=== PATIENT | female | born 1950 | race Caucasian/White ===

== ENCOUNTER → 2024-03-19 08:45 | Outpatient (REF) | payer MEDICARE, SELFPAY | LOC: HWWDC 08:45 | PROVIDERS: ATTENDING PHYSICIAN Family Medicine | DX: Z12.31 Encounter for screening mammogram for malignant neoplasm of breast (principal) | CPT/HCPCS: 77063; 77067 ==

== ENCOUNTER 2025-02-03 02:35 | Emergency (ER) | payer MEDICARE, SELFPAY ==
[2025-02-03 02:39] VITALS: BMI 42.1
[2025-02-03 02:40] VITALS: BP 133/81
[2025-02-03 02:45] VITALS: BP 133/81
[2025-02-03 03:00] VITALS: BP 138/69
[2025-02-03 03:01] LABS: % Basophils 0.2 % (0-2); % Eosinophils 0.4 % (0-6); % Immature Granulocytes 0.2 % (0-0.5); % Lymphocytes 23.9 % (20.5-51.1); % Monocytes 3.8 % (1.7-9.3); % Neutrophils 71.5 % (42.2-75.2); Absolute Lymphocytes 1.2 10^3/uL (1.2-3.4); Absolute Monocytes 0.2 10^3/uL (0.1-0.6); Absolute Neutrophils 3.5 10^3/uL (1.4-6.5); Hemoglobin 10.6 g/dL (12.0-16.0); Mean Corp Hgb Conc. 34.2 g/dL (33.0-37.0); Mean Corpuscular Hgb 39.4 pg (27.0-31.0); Mean Corpuscular Volume 115.2 fL (81.0-99.0); Mean Platelet Volume 10.2 fL (7.4-10.4); Nucleated Red Blood Cells % 0 %; Platelet Count 204 10^3/uL (130-400); Red Blood Cell Count 2.69 10^6/uL (4.20-5.40); White Blood Cell Count 4.9 10^3/uL (4.8-10.8)
[2025-02-03 03:25] LABS: ALT (SGPT) 55 U/L (0-35); AST (SGOT) 39 U/L (14-36); Albumin 3.7 g/dl (3.5-5.0); Alkaline Phosphatase 98 U/L (38-126); Blood Urea Nitrogen 12 mg/dl (7-17); Calcium 9.2 mg/dl (8.4-10.2); Carbon Dioxide 30 mmol/L (22-30); Chloride 104 mmol/L (98-107); Estimated Creatinine Clearance 66 ml/min; Glucose 206 mg/dl (70-99); Potassium 3.9 mmol/L (3.5-5.1); Sodium 140 mmol/L (135-145); Total Bilirubin 1.6 mg/dl (0.2-1.3); Total Protein 6.2 g/dl (6.3-8.2); eGFR > 60.00
[2025-02-03 03:38] LABS: Troponin I < 0.012 ng/ml
[2025-02-03 04:00] VITALS: BP 132/58
[2025-02-03 05:00] VITALS: BP 131/61
--- NOTE | 2025-02-03 05:22 | ED.GENMED ---
History of Present Illness
General
Chief Complaint: Chest Pain
Source: patient
Exam Limitations: none
Time Seen by Provider: 02/03/25 04:24
Nursing documentation reviewed up to this point in time: agreed with
History of Present Illness
History of Present Illness:
Pleasant 74-year-old female presents the emergency department with chest pain that began last evening at 7 PM after watching a movie. She states that the pain came on suddenly during the movie. Had brief shortness of breath. Patient had 4 baby
aspirin and nitro without relief. Patient is diabetic and hypertensive. She states that her mother and brother had early cardiac disease. Her brother had 7 heart attacks and 2 cardiac arrests and is still living. She follows up with Dr. Richter.
Past History
Past History
ED Past Medical History: NIDDM and Other (thrombocytosis)
ED Past Surgical History:
Social History
Tobacco: Non-smoker
Alcohol: None
Drug: None
Phy Exam
General Physical Exam
General Presentation: well appearing and no apparent distress
General Skin: warm and dry
General Habitus: normal
General Mental: alert
General Hydration: appears well hydrated
ENT Exam
ENT Exam: EOMI, pharynx normal, neck supple and normocephalic
Eye Exam
Eye Exam: PERRL, cornea clear and conjunctiva normal
Cardiovascular Exam
Cardiovascular Exam: regular rate/rhythm, no edema, no murmur and normal peripheral pulses
Pulmonary Exam
Pulmonary Exam: lungs clear, no respiratory distress, no rales, no crackles, no rhonchi, no stridor, no wheezing and no cough
Gastrointestinal Exam
Gastrointestinal Exam: normal bowel sounds, non tender, soft, no organomegaly, no pulsatile mass and non distended
Neurological Exam
Neurological Exam: alert, oriented x3, no motor deficits and speech normal
Musculoskeletal Exam
Musculoskeletal Exam: full ROM and no edema
Skin Exam
Skin Exam: normal color, warm/dry, no rash and no petechia
Psychiatric Exam
Psychiatric Exam: normal mood/affect
Scores
Heart Score for Chest Pain Patients
STEMI patient?: Not applicable
Course
Orders/Labs/Results
Orders:
Orders
02/03/25 02:38
Electrocardiogram (*1) Urgent
Reason for Study: Chest Pain
Cardiac Monitoring- Treatment ONCE
EKG- Treatment ONCE
IV Insert/Care/Rem.- Treatment PRN
O2 Therapy [RESP] Urgent
Titrate/Wean O2 to maintain O2 sat greater than (%): 90
Special Instructions: Maintain sats >/=90%
Pulse Ox/spot Check [RESP] Urgent
Quantity: 1
Special Instructions: ON ROOM AIR
02/03/25 02:52
Complete Blood Count/With Diff Urgent
Comprehensive Metabolic Panel Urgent
Troponin I Urgent
02/03/25 04:41
COVID-19 Antigen Urgent
Source: Nasal Swab
INF RAPID [Influenza A+B Rapid Molecular] Urgent
SANDRINE Source: Nasal Swab
Specimen Description:
02/03/25 05:22
CT Chest PE Study Urgent
Comment:
Reason For Exam: cp/dyspnea
02/03/25 05:36
Troponin I Urgent
Abnormal Lab Results
02/03/25
02:52
RBC 2.69 L 10^6/uL
(4.20-5.40)
Hgb 10.6 L g/dL
(12.0-16.0)
Hct 31.0 L %
(37.0-47.0)
MCV 115.2 H fL
(81.0-99.0)
MCH 39.4 H pg
(27.0-31.0)
Glucose 206 H mg/dl
(70-99)
Total Bilirubin 1.6 H mg/dl
(0.2-1.3)
AST 39 H U/L
(14-36)
ALT 55 H U/L
(0-35)
Total Protein 6.2 L g/dl
(6.3-8.2)
02/03/25 02:52
02/03/25 02:52
Vital Signs
Initial and Last Documented VS:
Initial Vital Signs
Temp Pulse Resp BP Pulse Ox
98.4 F 84 20 133/81 96
02/03/25 02:40 02/03/25 02:40 02/03/25 02:40 02/03/25 02:40 02/03/25 02:40
Last Documented Vital Signs
Temp Pulse Resp BP Pulse Ox
98.4 F 64 19 142/66 93
02/03/25 02:40 02/03/25 06:45 02/03/25 06:45 02/03/25 06:00 02/03/25 06:45
*Critical Care Note
Total Time (30-74mins, 75-104mins- exclusive of procedures): Not Applicable
ED Attending Note
-
Portions of this chart may have been created with voice recognition software.� Occasional wrong word or��sound alike� substitutions may have occurred due to the inherent limitations of voice recognition software.
Discharge Plan
Departure
Patient Disposition: Home (Routine Discharge)
Date of Disposition: 02/03/25
Time of Disposition: 06:33
Patient with high blood pressure during this ER visit?: Yes
Condition: Fair
Discharge Problem:
Chest pain
Instructions: Chest Pain CBC Follow Up
Prescriptions:
No Action
cholecalciferol (vitamin D3) 2,000 UNITS tablet
2,000 units PO DAILY 0RF
Rx Instructions:
Over The Counter
hydroxyurea 500 MG capsule
500 mg PO DAILY
docosahexaenoic acid-epa 1 CAP capsule
1 cap PO DAILY
Niacin
1 tab PO DAILY
Red Yeast Rice
2 tab PO BID
metformin 500 MG tablet extended release 24 hr
1,000 mg PO .DINNER
Referrals:
Tobias Onofre MD [Family Provider] -
Activity Restrictions/Additional Instructions:
Thank You for choosing [facility].
It was a pleasure meeting you and taking part in your care. We hope for your continued healing and wellness.
Please read discharge instructions in their entirety. However, they are for general education and may not describe your exact diagnosis at discharge. Information on your ER visit and medical conditions were discussed with you along with appropriate
follow up information...
If indicated, please take your medications as instructed and indicated on discharge paperwork.
Please schedule a follow up appointment as directed. Call to schedule an appointment
Please return to the emergency department with ANY change in, persisting, or worsening of symptoms. If any of your symptoms do not improve, or persist, or become more severe within 6-12 hours, please return to the emergency department for further
care.
Please return to the emergency department if you develop a headache, neck pain/stiffness, fever greater than 100.4F, chest pain, shortness of breath, persistent nausea, vomiting, slurred speech, difficulty walking, numbness/tingling, weakness, signs
of infection or any other symptoms that are worrisome to you.
If you have any questions or concerns please do not hesitate to call the Hospital at or E-mail me directly at [email or web address]
Interventions
Interventions:
*Risk Screen - Suicide Last Done: 02/03/25 02:40
*General Assessment Last Done: 02/03/25 02:40
*Neglect/Abuse Screening Last Done: 02/03/25 02:40
*ED- Fall Risk Assessment Last Done: 02/03/25 02:40
*ED COVID-19 Vaccine History Last Done: 02/03/25 02:40
*Nursing Disposition Last Done: 02/03/25 07:13
ED- Cardiac Assessment Last Done: 02/03/25 02:48
Discharge Date and Time
Discharge Date/Time: 02/03/25 07:14
Print Language: SAO TOMEAN
[2025-02-03 05:32] LABS: COVID-19 Antigen Negative (Negative)
[2025-02-03 06:00] VITALS: BP 142/66
[2025-02-03 06:28] LABS: Troponin I < 0.012 ng/ml
== END 2025-02-03 07:14 | disposition home or self-care (01) ==
LOC: EMR 02:35
PROVIDERS: EMERGENCY PHYSICIAN Student in an Organized Health Care Education/Training Program; FAMILY PHYSICIAN Family Medicine
DX: R07.9 Chest pain, unspecified (principal); E11.9 Type 2 diabetes mellitus without complications; I10 Essential (primary) hypertension; Z82.49 Family history of ischemic heart disease and other diseases of the circulatory system; Z11.52 Encounter for screening for COVID-19
CPT/HCPCS: 99284; 71275; 80053; 84484; 85025; 87502; 87811; 93005; Q9967

== ENCOUNTER → 2025-02-17 09:40 | Outpatient (REF) | payer MEDICARE, SELFPAY | LOC: PAVMRI 09:40 | PROVIDERS: ATTENDING PHYSICIAN Internal Medicine; FAMILY PHYSICIAN Family Medicine; REFERRING PHYSICIAN Internal Medicine Hematology & Oncology | DX: D50.9 Iron deficiency anemia, unspecified (principal); K86.2 Cyst of pancreas; E27.9 Disorder of adrenal gland, unspecified | CPT/HCPCS: 74183; A9575 ==

== ENCOUNTER → 2025-02-19 08:35 | Outpatient (REF) | payer MEDICARE, SELFPAY | LOC: RCS 08:35 | PROVIDERS: ATTENDING PHYSICIAN Nurse Practitioner; FAMILY PHYSICIAN Family Medicine | DX: R07.89 Other chest pain (principal) | CPT/HCPCS: 93017; 93350 ==